=== PATIENT | female | born 1955 | race Two or more races ===

== ENCOUNTER 2021-06-23 23:49 | Inpatient (IN) | payer OTHER ==
[~2021-06-23] VITALS: Ht 157.5 cm; Wt 62.0 kg
[2021-06-24 01:02] LABS: Basophils # (auto) 0 10 ^3/uL (0-0.2); Eosinophils # (auto) 0 10 ^3/uL (0-0.8); Eosinophils % (auto) 0.1 % (0.0-7.0); Hemoglobin 12.6 g/dL (12.2-16.2); Lymphocytes # (auto) 1.1 10 ^3/uL (0.4-5.4); Monocytes # (auto) 0.3 10 ^3/uL (0-1.3); Neutrophils # (auto) 0.6 10 ^3/uL (1.6-8.6)
[2021-06-24 01:05] LABS: Basophils % (auto) 0.8 % (0.0-2.0); Hematocrit 37.3 % (36.0-46.0); Lymphocytes % (auto) 54.9 % (10.0-50.0); Mean Corpuscular Hemoglobin 26.9 pg (28.0-32.0); Mean Corpuscular Hgb Conc. 33.7 g/dL (32.0-36.0); Mean Corpuscular Volume 79.8 fL (80.0-100.0); Monocytes % (auto) 14.1 % (0.0-12.0); Neutrophils % (auto) 30.1 % (37.0-80.0); Nucleated Red Blood Cells % 0.5 %; Red Blood Cells 4.68 10^6/uL (4.0-5.20); Red Cell Distribution Width 13.2 % (11.8-14.3)
[2021-06-24 01:21] LABS: Albumin 3.4 g/dL (3.4-5.0); Anion Gap 8 (5-15); Blood Urea Nitrogen 7 mg/dL (7-18); Carbon Dioxide 27 mmol/L (21-32); Chloride 89 mmol/L (98-107); Glucose 296 mg/dL (74-106); Sodium 124 mmol/L (136-145)
[2021-06-24 01:23] LABS: BUN/Creatinine Ratio 11.1
[2021-06-24 01:24] LABS: GFR African American 122 mL/min; GFR Non-African American 100 mL/min
[2021-06-24 01:29] LABS: Alanine Aminotransferase 105 U/L (13-56); Alkaline Phosphatase 115 U/L (45-117); Aspartate Aminotransferase 81 U/L (15-37); Bilirubin, Total 0.6 mg/dL (0.2-1.0)
[2021-06-24] MEDS ORDERED: LABETALOL HCL 5 MG/ML 4ML SYRINGE IV ONE (02:30)
[2021-06-24] MEDS ORDERED: POTASSIUM CHL 20 Meq TABLET PO ONE (02:30)
[2021-06-24] MEDS ORDERED: ONDANSETRON HCL 4 MG/2 ML VIAL IV ONE (02:30)
[2021-06-24] MEDS ORDERED: SODIUM CHLORIDE 0.9% 1,000 ML IV ONE (02:30)
[2021-06-24] MEDS: POTASSIUM CHL 20MEQ/50ML 50 ML IV SCH ×2 (03:29→05:28)
[2021-06-24] MEDS ORDERED: ONDANSETRON HCL 4 MG/2 ML VIAL IV PRN (05:30)
[2021-06-24] MEDS ORDERED: TEMAZEPAM 15 MG CAP PO PRN (05:30)
[2021-06-24] MEDS ORDERED: NITROGLYCERIN 0.4 MG SL TAB SL PRN (05:30)
[2021-06-24] MEDS ORDERED: MORPHINE SULFATE INJECTION 2 MG/ML SYRG IV PRN (05:30)
[2021-06-24] MEDS ORDERED: ACETAMINOPHEN 500 MG TAB PO PRN (05:30)
[2021-06-24] MEDS ORDERED: DEXTROSE (50%) 50ML SYRG IV PRN (05:30)
[2021-06-24] MEDS: ACCU-CHEK COMFORT CURVE STRIP VI SCH ×4 (06:30→23:56)
[2021-06-24] MEDS: InsuLIN REG 1unit/0.01ml Soln (100units/ml) SC SCH ×4 (06:33→23:56)
[2021-06-24 08:07] VITALS: BP 134/56
[2021-06-24] MEDS: DexAMETHasone SOD PHOS 10MG/1ML VIAL INJ IV SCH (08:07)
[2021-06-24] MEDS: ZINC SULFATE 220mg CAP or TAB PO SCH (08:07)
[2021-06-24] MEDS: PANTOPRAZOLE 40 MG TAB PO SCH (08:07)
[2021-06-24] MEDS: CHOLECALCIFEROL (VITD3) 2,000 UNIT CAP/TAB PO SCH (08:08)
[2021-06-24] MEDS: ASCORBIC ACID 1,000 MG TAB PO SCH (08:08)
[2021-06-24] MEDS: ENOXAPARIN SOD 40 MG/0.4 ML SYRINGE SC SCH ×2 (08:09→21:40)
[2021-06-24] MEDS ORDERED: AZITHROMYCIN 500MG/ 250ML 250 ML IV SCH (10:00)
[2021-06-24 13:00] VITALS: BP 138/80
[2021-06-24] MEDS ORDERED: LOSARTAN POTASSIUM 25 MG TAB PO ONE (16:00)
[2021-06-24] MEDS ORDERED: amLODIPine BESYLATE 5 MG TAB PO ONE (16:00)
[2021-06-24 16:38] LABS: BUN/Creatinine Ratio 13.2; Calcium 8.2 mg/dL (8.5-10.1); Potassium 5.1 mmol/L (3.5-5.1)
[2021-06-24 17:00] VITALS: BP 143/94
[2021-06-24] MEDS ORDERED: InsuLIN REG 1unit/0.01ml Soln (100units/ml) IV ONE (17:45)
[2021-06-24 18:02] LABS: Urine Bacteria NONE SEEN /hpf (None Seen); Urine Blood Negative /uL (Negative); Urine Specific Gravity 1.023 (1.001-1.035); Urine WBC <1 /hpf (0 - 5)
[2021-06-24] MEDS: INSULIN LANTUS (GLARGINE) 1 /0.01ml (100units/ml) SC SCH (21:38)
[2021-06-24 22:00] VITALS: BP 149/77
[2021-06-24] MEDS: ALBUTEROL SULF HFA 90MCG INH 200DOSE IN PRN (22:16)
[2021-06-25 05:27] VITALS: BP 135/67
[2021-06-25 05:40] LABS: Basophils # (auto) 0 10 ^3/uL (0-0.2); Eosinophils # (auto) 0 10 ^3/uL (0-0.8); Neutrophils # (auto) 1.4 10 ^3/uL (1.6-8.6); Red Cell Distribution Width 13.4 % (11.8-14.3)
[2021-06-25 05:45] LABS: Basophils % (auto) 0.2 % (0.0-2.0); Eosinophils % (auto) 0.1 % (0.0-7.0); Hematocrit 34.2 % (36.0-46.0); Hemoglobin 11.5 g/dL (12.2-16.2); Lymphocytes % (auto) 34.9 % (10.0-50.0); Mean Corpuscular Hemoglobin 26.6 pg (28.0-32.0); Mean Corpuscular Hgb Conc. 33.6 g/dL (32.0-36.0); Mean Corpuscular Volume 79.1 fL (80.0-100.0); Monocytes # (auto) 0.5 10 ^3/uL (0-1.3); Neutrophils % (auto) 48.8 % (37.0-80.0); Nucleated Red Blood Cells % 0.1 %; Red Blood Cells 4.33 10^6/uL (4.0-5.20); White Blood Cell 2.8 10^3/uL (4.4-10.8)
[2021-06-25] MEDS: INSULIN LANTUS (GLARGINE) 1 /0.01ml (100units/ml) SC SCH ×2 (05:54→22:12)
[2021-06-25] MEDS: InsuLIN REG 1unit/0.01ml Soln (100units/ml) SC SCH ×3 (05:54→17:09)
[2021-06-25] MEDS: ACCU-CHEK COMFORT CURVE STRIP VI SCH ×3 (05:54→17:08)
[2021-06-25 06:02] LABS: Calcium 8.4 mg/dL (8.5-10.1); Potassium 4.3 mmol/L (3.5-5.1)
[2021-06-25 06:05] LABS: BUN/Creatinine Ratio 23.3; Bilirubin, Total 0.5 mg/dL (0.2-1.0); Total Protein 7.3 g/dL (6.4-8.2)
[2021-06-25] MEDS: ALBUTEROL SULF HFA 90MCG INH 200DOSE IN PRN (06:46)
[2021-06-25 09:00] VITALS: BP 119/69
[2021-06-25] MEDS ORDERED: FUROSEMIDE 40 MG/4 ML VIAL IV ONE (10:00)
[2021-06-25] MEDS: PANTOPRAZOLE 40 MG TAB PO SCH (10:03)
[2021-06-25] MEDS: CHOLECALCIFEROL (VITD3) 2,000 UNIT CAP/TAB PO SCH (10:03)
[2021-06-25] MEDS: amLODIPine BESYLATE 5 MG TAB PO SCH (10:04)
[2021-06-25] MEDS: ENOXAPARIN SOD 40 MG/0.4 ML SYRINGE SC SCH ×2 (10:05→22:11)
[2021-06-25] MEDS: DexAMETHasone SOD PHOS 10MG/1ML VIAL INJ IV SCH (10:05)
[2021-06-25] MEDS: ASCORBIC ACID 1,000 MG TAB PO SCH (10:05)
[2021-06-25] MEDS: LOSARTAN POTASSIUM 25 MG TAB PO SCH (10:05)
[2021-06-25] MEDS: ZINC SULFATE 220mg CAP or TAB PO SCH (10:05)
[2021-06-25 13:00] VITALS: BP 135/73
[2021-06-25 14:15] LABS: % Iron Saturation 50.6 % (15-50)
[2021-06-25 14:23] LABS: Amphetamine Screen, Urine NEGATIVE (NEGATIVE); Barbiturate Scree,Urine NEGATIVE (NEGATIVE); Benzodiazephine Screen, Urine NEGATIVE (NEGATIVE); Cannabinoid Screen, Urine NEGATIVE (NEGATIVE); Cocaine Screen, Urine NEGATIVE (NEGATIVE); Opiate Scree,Urine NEGATIVE (NEGATIVE); Phencyclidine Screen, Urine NEGATIVE (NEGATIVE)
[2021-06-25] MEDS ORDERED: ROSU1TAB14 PO (15:43)
[2021-06-25] MEDS ORDERED: METF-370 PO (15:43)
[2021-06-25] MEDS ORDERED: LOSA100T33 PO (15:43)
[2021-06-25] MEDS ORDERED: GLIP10TA9 PO (15:43)
[2021-06-25 17:00] VITALS: BP 126/66
[2021-06-25] MEDS: metFORMIN HYDROCHLORIDE 850 MG TAB PO SCH (17:07)
[2021-06-25] MEDS: glipiZIDE 5 MG TAB PO SCH (17:07)
[2021-06-25 22:00] VITALS: BP 138/69
[2021-06-26] MEDS: ACCU-CHEK COMFORT CURVE STRIP VI SCH ×4 (01:47→18:07)
[2021-06-26] MEDS: InsuLIN REG 1unit/0.01ml Soln (100units/ml) SC SCH ×4 (02:00→18:00)
[2021-06-26 05:00] VITALS: BP 118/57
[2021-06-26] MEDS: INSULIN LANTUS (GLARGINE) 1 /0.01ml (100units/ml) SC SCH (07:09)
[2021-06-26] MEDS: glipiZIDE 5 MG TAB PO SCH (07:09)
[2021-06-26] MEDS: metFORMIN HYDROCHLORIDE 850 MG TAB PO SCH (08:04)
[2021-06-26 09:00] VITALS: BP 107/63
[2021-06-26] MEDS ORDERED: CHOL1CAP47 PO (09:22)
[2021-06-26] MEDS ORDERED: ASCO10003 PO (09:22)
[2021-06-26] MEDS ORDERED: ZINC220T6 PO (09:22)
[2021-06-26] MEDS ORDERED: AML5T PO (09:22)
[2021-06-26] MEDS ORDERED: ASPI1TAB20 PO (09:22)
[2021-06-26] MEDS: PANTOPRAZOLE 40 MG TAB PO SCH (10:00)
[2021-06-26] MEDS: ZINC SULFATE 220mg CAP or TAB PO SCH (10:00)
[2021-06-26] MEDS: LOSARTAN POTASSIUM 25 MG TAB PO SCH (10:00)
[2021-06-26] MEDS: ENOXAPARIN SOD 40 MG/0.4 ML SYRINGE SC SCH (10:00)
[2021-06-26] MEDS: amLODIPine BESYLATE 5 MG TAB PO SCH (10:00)
[2021-06-26] MEDS: CHOLECALCIFEROL (VITD3) 2,000 UNIT CAP/TAB PO SCH (10:00)
[2021-06-26] MEDS: ASCORBIC ACID 1,000 MG TAB PO SCH (10:00)
[2021-06-26 12:12] LABS: Basophils # (auto) 0 10 ^3/uL (0-0.2); Eosinophils # (auto) 0 10 ^3/uL (0-0.8); Mean Corpuscular Hemoglobin 26.6 pg (28.0-32.0); Monocytes # (auto) 0.7 10 ^3/uL (0-1.3); Red Cell Distribution Width 13.5 % (11.8-14.3); White Blood Cell 6.9 10^3/uL (4.4-10.8)
[2021-06-26 12:14] LABS: Basophils % (auto) 0.1 % (0.0-2.0); Hematocrit 38.6 % (36.0-46.0); Lymphocytes # (auto) 1.9 10 ^3/uL (0.4-5.4); Lymphocytes % (auto) 27.5 % (10.0-50.0); Mean Corpuscular Hgb Conc. 33.5 g/dL (32.0-36.0); Mean Corpuscular Volume 79.3 fL (80.0-100.0); Monocytes % (auto) 10.6 % (0.0-12.0); Neutrophils # (auto) 4.3 10 ^3/uL (1.6-8.6); Neutrophils % (auto) 61.8 % (37.0-80.0); Nucleated Red Blood Cells % 0.1 %; Red Blood Cells 4.87 10^6/uL (4.0-5.20)
[2021-06-26 12:26] LABS: Albumin 3.4 g/dL (3.4-5.0); Calcium 8.9 mg/dL (8.5-10.1); Potassium 3.6 mmol/L (3.5-5.1)
[2021-06-26 12:31] LABS: Bilirubin, Total 0.6 mg/dL (0.2-1.0); Total Protein 8.4 g/dL (6.4-8.2)
[2021-06-26 13:00] VITALS: BP 144/75
[2021-06-26] MEDS ORDERED: LACTULOSE 20Gm/30ML SOLN PO ONE (13:15)
[2021-06-26] MEDS ORDERED: DOCUSATE SOD 100 MG CAP PO ONE (15:30)
[2021-06-26] MEDS ORDERED: FER325T PO (15:39)
[2021-06-26] MEDS ORDERED: FLEET ENEMA(ADULT) 135 ML PR ONE (18:00)
[2021-06-26 18:08] VITALS: BP 144/75
== END 2021-06-26 19:15 | disposition home or self-care (01) | DRG 199 ==
LOC: ER 23:52 → TELE 06-24 05:34 → TELE-EAST 06-24 11:57
PROVIDERS: ADMIT Nurse Practitioner; ATTEND Internal Medicine
DX: I16.1 Hypertensive emergency (principal); J12.82 Pneumonia due to coronavirus disease 2019; I50.31 Acute diastolic (congestive) heart failure; U07.1 COVID-19; D69.6 Thrombocytopenia, unspecified; I11.0 Hypertensive heart disease with heart failure; E86.0 Dehydration; D72.819 Decreased white blood cell count, unspecified; E11.65 Type 2 diabetes mellitus with hyperglycemia; E87.6 Hypokalemia; D72.820 Lymphocytosis (symptomatic); E78.5 Hyperlipidemia, unspecified; R09.02 Hypoxemia; Z90.710 Acquired absence of both cervix and uterus; R71.8 Other abnormality of red blood cells; R79.89 Other specified abnormal findings of blood chemistry
CPT/HCPCS: 36415; 71045; 80048; 80053; 80307; 81001; 82728; 82962; 83036; 83540; 83550; 83605; 83735; 83930; 83935; 84300; 84484; 84550; 85025; 85379; 86141; 87040; 87426; 93005; 94640; 96365; 96366; 96367; 96372; 96375; 99291; G0378; J1100; J1815; J2405; J3490

== ENCOUNTER 2023-03-18 22:38 | Emergency (ER) | payer OTHER ==
[~2023-03-18] VITALS: Ht 157.5 cm; Wt 61.8 kg
[~2023-03-18 22:38] MED LIST: AML5T PO; ASCO10003 PO; ASPI1TAB20 PO; CHOL1CAP47 PO; GLIP10TA9 PO; LOSA100T33 PO; METF-370 PO; ROSU1TAB14 PO; ZINC220T6 PO
[2023-03-19] MEDS ORDERED: ACE3T PO (01:54)
[2023-03-19 03:08] VITALS: BP 137/83
[2023-03-19] MEDS ORDERED: ONDANSETRON ODT 4 MG TAB PO ONE (04:15)
[2023-03-19] MEDS ORDERED: HYDROcodone-ACET 5/325MG TAB PO ONE (04:15)
== END 2023-03-19 04:20 | disposition home or self-care (01) ==
LOC: ER 22:38
DX: S30.0XXA Contusion of lower back and pelvis, initial encounter (principal); S20.212A Contusion of left front wall of thorax, initial encounter; E11.9 Type 2 diabetes mellitus without complications; I10 Essential (primary) hypertension; Z90.710 Acquired absence of both cervix and uterus; W18.30XA Fall on same level, unspecified, initial encounter; Y93.89 Activity, other specified; Y92.89 Other specified places as the place of occurrence of the external cause; Y99.8 Other external cause status
CPT/HCPCS: 71250; 72131

== ENCOUNTER 2024-05-16 14:12 | Inpatient (IN) | payer OTHER ==
[~2024-05-16] VITALS: Ht 157.5 cm; Wt 68.3 kg
[~2024-05-16 14:12] MED LIST changes: +ACE3T PO; -ROSU1TAB14 PO; +ROSU20TA56 PO
[2024-05-16] MEDS: cloNIDine HCL 0.1 MG TAB PO ONE (14:30)
[2024-05-16 15:06] LABS: Basophils # (auto) 0.1 10 ^3/uL (0-0.2); Basophils % (auto) 1.1 % (0.0-2.0); Eosinophils # (auto) 0.1 10 ^3/uL (0-0.8); Hemoglobin 11.1 g/dL (12.2-16.2); Mean Corpuscular Hgb Conc. 33.1 g/dL (32.0-36.0); Monocytes # (auto) 0.4 10 ^3/uL (0-1.3); Nucleated Red Blood Cells % 0.1 %; White Blood Cell 5.5 10^3/uL (4.4-10.8)
[2024-05-16 15:08] LABS: Eosinophils % (auto) 1.1 % (0.0-7.0); Hematocrit 33.6 % (36.0-46.0); Lymphocytes # (auto) 1.9 10 ^3/uL (0.4-5.4); Lymphocytes % (auto) 33.7 % (10.0-50.0); Mean Corpuscular Hemoglobin 26.6 pg (28.0-32.0); Mean Corpuscular Volume 80.3 fL (80.0-100.0); Monocytes % (auto) 7.1 % (0.0-12.0); Neutrophils # (auto) 3.1 10 ^3/uL (1.6-8.6); Red Blood Cells 4.19 10^6/uL (4.0-5.20)
[2024-05-16 15:18] LABS: Chloride 95 mmol/L (98-107); Potassium 3.9 mmol/L (3.5-5.1); Sodium 129 mmol/L (136-145)
[2024-05-16 15:19] LABS: Anion Gap 7 (5-15); Calcium 10.1 mg/dL (8.7-10.4); Carbon Dioxide 27 mmol/L (20-30)
[2024-05-16 15:24] LABS: BUN/Creatinine Ratio 13.8 (10.0-20.0); Blood Urea Nitrogen 16 mg/dL (9-23); Glucose 366 mg/dL (74-106)
[2024-05-16 16:24] LABS: Urine Bacteria None Seen /hpf (None Seen)
[2024-05-16 16:33] LABS: Urine Blood TRACE /uL (Negative); Urine Clarity Clear (Clear); Urine Color Light-Yellow (Yellow); Urine Protein, UAD 2+ (Negative); Urine Specific Gravity 1.009 (1.001-1.035); Urine Urobilinogen Normal (Negative); Urine WBC 12 /hpf (0 - 5); Urine pH 6.5 (5.0-9.0)
[2024-05-16] MEDS ORDERED: ACETAMINOPHEN 325 MG TAB PO PRN (16:45)
[2024-05-16] MEDS ORDERED: ONDANSETRON HCL 4 MG/2 ML VIAL IV PRN (16:45)
[2024-05-16] MEDS ORDERED: DEXTROSE (50%) 50ML SYRG IV PRN (16:45)
[2024-05-16] MEDS ORDERED: HYDROcodone-ACET 5/325MG TAB PO PRN (16:45)
[2024-05-16] MEDS: ASPirin-EC 81 mg tab PO SCH (16:45)
[2024-05-16] MEDS ORDERED: DOCUSATE SOD 100 MG CAP PO PRN (16:45)
[2024-05-16] MEDS: InsuLIN REG 1unit/0.01ml Soln (100units/ml) SC SCH (17:00)
[2024-05-16] MEDS: ACCU-CHEK COMFORT CURVE STRIP VI SCH (17:21)
[2024-05-16 18:58] LABS: Triglycerides 229 mg/dL (< 150)
[2024-05-16 18:59] LABS: LDL Cholesterol 118 mg/dL (< 100)
[2024-05-16 19:00] LABS: HDL Cholesterol 31 mg/dL (40-59)
[2024-05-16 19:22] LABS: Cholesterol 174 mg/dL (< 200)
[2024-05-16] MEDS: ACETAMINOPHEN/CODEINE#3 (300/30mg) TAB PO SCH (20:11)
[2024-05-16 20:30] VITALS: PULSE 68; RESP 16; O2SAT 98
[2024-05-16] MEDS ORDERED: hydrALAZINE HCL 20 MG/ML VL IV PRN (20:30)
[2024-05-16] MEDS: hydrALAZINE HCL 20 MG/ML VL IV PRN (20:40)
[2024-05-16] MEDS: SODIUM CHLOR 0.9% PF (SALINE LOCK) 10ML VIAL/SYR IV SCH (22:41)
[2024-05-17] VITALS (8 sets, daily range): BP systolic 122–175; BP diastolic 65–82; PULSE 48–84; RESP 18–20; TEMP 98.2–98.5; O2SAT 97–99
[2024-05-17] MEDS ORDERED: amLODIPine BESYLATE 5 MG TAB PO SCH (10:00)
[2024-05-17] MEDS ORDERED: ASCORBIC ACID 500 MG TAB PO SCH (10:00)
[2024-05-17] MEDS ORDERED: ZINC SULFATE 220mg CAP or TAB PO SCH (10:00)
[2024-05-17] MEDS ORDERED: CHOLECALCIFEROL (VITD3) 1,000UNIT=25mCg TAB PO SCH (10:00)
[2024-05-17] MEDS: hydroCHLOROthiazide 25 MG TAB PO SCH (12:03)
[2024-05-17] MEDS: ENOXAPARIN SOD 40 MG/0.4 ML SYRINGE SC SCH (12:04)
[2024-05-17] MEDS: LOSARTAN POTASSIUM 50 MG TAB PO SCH (20:51)
[2024-05-17] MEDS: ATORVASTATIN 20 MG TAB PO SCH (20:51)
[2024-05-18 05:00] VITALS: BP 113/53; PULSE 76; RESP 20; TEMP 98.2; O2SAT 96
[2024-05-18 08:00] VITALS: PULSE 65; PULSE 74
[2024-05-18 09:00] VITALS: BP 122/67; PULSE 74; RESP 18; TEMP 98.4; O2SAT 96
[2024-05-18] MEDS: BUPIVACAINE 0.5% P/F INJ 10 ML VIAL ONE (09:24)
[2024-05-18 13:00] VITALS: BP 126/65; PULSE 69; RESP 18; TEMP 98.5; O2SAT 96
[2024-05-18 16:54] VITALS: BP 140/73; PULSE 78; RESP 18; TEMP 98.3; O2SAT 99
[2024-05-18 18:15] VITALS: BP 122/67
== END 2024-05-18 18:50 | disposition home or self-care (01) | DRG 199 ==
LOC: ER 14:12 → TELE 16:39 → TELE-WESTW 05-17 03:30
PROVIDERS: ADMIT Internal Medicine; ATTEND Nurse Practitioner Acute Care
DX: I16.9 Hypertensive crisis, unspecified (principal); G45.9 Transient cerebral ischemic attack, unspecified; E11.65 Type 2 diabetes mellitus with hyperglycemia; N39.0 Urinary tract infection, site not specified; E78.5 Hyperlipidemia, unspecified; J45.909 Unspecified asthma, uncomplicated; Z90.710 Acquired absence of both cervix and uterus; I10 Essential (primary) hypertension
CPT/HCPCS: 36415; 70450; 70551; 80048; 80061; 81001; 82962; 85025; 97110; 97116; 97163; 97530; 99291; G0378; J1815; J3490